=== PATIENT | male | born 1990 | race Caucasian/White ===

== ENCOUNTER 2017-06-14 22:04 | Emergency (ER) | payer OTHER ==
[2017-06-14 22:14] VITALS: BP 154/93; PULSE 105; RESP 18; TEMP 98.6
[2017-06-14] MEDS ORDERED: IBUPROFEN 600 MG TAB PO STA (22:31)
[2017-06-14] MEDS ORDERED: ACETAMINOPHEN TAB 325 MG TAB PO STA (22:31)
--- NOTE | 2017-06-14 22:47 | XR ---
EXAMINATION TYPE: XR elbow limited LT DATE OF EXAM: 06/14/2017 COMPARISON: NONE HISTORY: Fell down the stairs. Pain. TECHNIQUE: 4 views FINDINGS: There is a transverse fracture of the olecranon process of the ulna. There is displacement more than 1 cm. There is elbow joint effusion. There is soft tissue swelling over the olecranon proce ss. There is no dislocation. IMPRESSION: Acute transverse fracture of the olecranon process of the ulna. Elbow joint effusion.
--- NOTE | 2017-06-14 23:11 | ED ---
Fall HPI - General Chief Complaint: Fall Stated Complaint: fall/elbow pain Time Seen by Provider: 06/14/17 22:29 Source: patient, EMS Mode of arrival: ambulatory - History of Present Illness Initial Comments: 26-year-old male patient presents to emergency department states complaint of left elbow pain and swelling. Patient states just prior to arrival he was walking up one step when he tripped and fell forward landing right on the elbow. He states that it swelled immediately. He states his significant pain with any attempts to move the elbow. He denies hitting his head or losing consciousness. He denies any other injuries. Patient denies any headache, neck pain, back pain, chest pain, shortness of breath, dizziness, weakness, abdominal pain, nausea, vomiting, or difficulties with bowel movements or urination. - Related Data Previous Rx's Medication Instructions Recorded Acetaminophen-Codeine 300-30mg 1 tab PO Q6H PRN #15 tablet 06/14/17 [Tylenol #3] Allergies Allergy/AdvReac Type Severity Reaction Status Date / Time powder deodorant Allergy Unknown Uncoded 06/14/17 22:15 Review of Systems ROS Statement: Those systems with pertinent positive or pertinent negative responses have been documented in the HPI. ROS Other: All systems not noted in ROS Statement are negative. Past Medical History Past Medical History: No Reported History History of Any Multi-Drug Resistant Organisms: None Reported Past Surgical History: No Surgical Hx Reported Past Psychological History: No Psychological Hx Reported Smoking Status: Never smoker Past Alcohol Use History: None Reported Past Drug Use History: None Reported, Unable to Obtain General Exam Limitations: no limitations General appearance: alert, in no apparent distress, other (This is a well- developed, well-nourished adult male patient in no acute distress. Vital signs upon presentation are temperature 98.6F, pulse 105, respirations 18, blood pressure 154/93, pulse ox 98% on room air.) Head exam: Present: atraumatic, normocephalic, normal inspection Eye exam: Present: normal appearance, PERRL, EOMI. Absent: scleral icterus, conjunctival injection, periorbital swelling ENT exam: Present: normal exam, normal oropharynx, mucous membranes moist Neck exam: Present: normal inspection, full ROM, other (Nontender, no step-off, no deformity to firm midline palpation of the posterior cervical spine. Full range of motion without pain or limitation.). Absent: tenderness, meningismus, lymphadenopathy Respiratory exam: Present: normal lung sounds bilaterally. Absent: respiratory distress, wheezes, rales, rhonchi, stridor Cardiovascular Exam: Present: regular rate, normal rhythm, normal heart sounds. Absent: systolic murmur, diastolic murmur, rubs, gallop, clicks Extremities exam: Present: full ROM, tenderness (Over the left elbow), normal capillary refill, joint swelling ( left elbow swelling, over the extensor surface), other (Significant swelling noted over the extensor surface of the left elbow. Radial pulses 2+ and equal bilaterally. Skin is otherwise pink, warm, and dry. Cap refills less than 3 seconds.). Absent: normal inspection, pedal edema, calf tenderness Back exam: Present: normal inspection, other (Nontender, no step-off, no deformity to firm midline palpation of the thoracic and lumbar vertebrae. Full range of motion without pain or limitation.). Absent: vertebral tenderness Neurological exam: Present: alert, oriented X3, CN II-XII intact Psychiatric exam: Present: normal affect, normal mood Skin exam: Present: warm, dry, intact, normal color. Absent: rash Course Vital Signs 06/14/17 22:11 Temperature 98.6 F Pulse Rate 105 H Respiratory 18 Rate Blood Pressure 154/93 O2 Sat by Pulse 98 Oximetry Procedures - Orthopedic Splinting/Casting Injury #1 Side: left Upper Extremity Injury Location: long arm, elbow Upper Extremity Immobilizer: sling/shoulder immobilizer, ulnar gutter Additional Comments: Neurovascular status intact after splint application. Skin is pink, warm, and dry. Cap refills less than 3 seconds. Patient denies any numbness or tingling. Medical Decision Making - Medical Decision Making 26-year-old male patient presented to the emergency department today for evaluation of left elbow pain and swelling. Physical examination did reveal significant swelling to the extensor surface of the left elbow. Neurovascular status was intact. X-ray was obtained and did show a transverse fracture through the olecranon process of the ulna. This is a displaced fracture of greater than 1 cm. Patient was placed in an ulnar gutter long arm splint and placed in a sling. He was educated regarding placing. He'll be given Tylenol 3 for pain control. He is instructed to follow-up with orthopedics as soon as possible. He is instructed to return here immediately for any new, worsening, or concerning symptoms. He verbalizes understanding and agrees with this plan. - Radiology Data Radiology results: report reviewed, image reviewed 4 views of the left elbow show transverse fracture of the olecranon process of the ulna. There is displacement more than 1 cm. There is elbow joint effusion. There is soft tissue swelling over the olecranon process. There is no dislocation. Impression by Dr. Lopez shows acute transverse fracture of the olecranon process of the ulna. Elbow joint effusion. Disposition Clinical Impression: Olecranon fracture Disposition: HOME SELF-CARE Condition: Good Instructions: Elbow Fracture (ED) Additional Instructions: Leave splint in place. Apply ice to the area 30 minutes at a time at least 4 times daily. Do not get splint wet. Use sling for comfort. Follow up with orthopedics as soon as possible. Take your disc to the appointment with you. Take medications as directed. Return here immediately for any new, worsening, or concerning symptoms. Prescriptions: Acetaminophen-Codeine 300-30mg [Tylenol #3] 1 tab PO Q6H PRN #15 tablet PRN Reason: Pain Referrals: None,Stated [Primary Care Provider] - 1-2 days Lacho Boone DO [Doctor of Osteopathic Medicine] - 1-2 days Time of Disposition: 23:11
== END 2017-06-14 23:05 | disposition home or self-care (01) ==
LOC: EC 22:04
DX: S52.022A Displaced fracture of olecranon process without intraarticular extension of left ulna, initial encounter for closed fracture (principal); M25.422 Effusion, left elbow; Z91.048 Other nonmedicinal substance allergy status; W01.0XXA Fall on same level from slipping, tripping and stumbling without subsequent striking against object, initial encounter; Y93.01 Activity, walking, marching and hiking; Y92.89 Other specified places as the place of occurrence of the external cause
CPT/HCPCS: 29105; 99283

== ENCOUNTER 2017-06-17 16:40 | Emergency (ER) | payer OTHER ==
[2017-06-17 16:57] VITALS: RESP 18
--- NOTE | 2017-06-17 17:37 | ED ---
General Adult HPI - General Chief complaint: Recheck/Abnormal Lab/Rx Stated complaint: Wants blood pressure checked Time Seen by Provider: 06/17/17 17:06 Source: patient, RN notes reviewed, old records reviewed Mode of arrival: ambulatory Limitations: no limitations - History of Present Illness Initial comments: Patient 26-year-old male who presents emergency room today with a chief complaint of needing his blood pressure rechecked. He states that he was seen recently here in the emergency room diagnosed with a fracture of the left elbow. He states she's scheduled to have surgery in the neck 4 days. He states that he was advised that he should come to the hospital have his blood pressure checked prior to surgery. Patient states he has no past medical history is not on any medications. Denies any history of hypertension. Patient denies any recent fever, chills, shortness of breath, chest pain, headaches or visual changes, or any other complaints. - Related Data Home Medications Medication Instructions Recorded Confirmed No Known Home Medications [No 06/17/17 06/17/17 Known Home Medications] Allergies Allergy/AdvReac Type Severity Reaction Status Date / Time nickel Allergy irritates Verified 06/17/17 16:59 skin powder deodorant Allergy Rash/Hives Uncoded 06/17/17 16:57 Review of Systems ROS Statement: Those systems with pertinent positive or pertinent negative responses have been documented in the HPI. ROS Other: All systems not noted in ROS Statement are negative. 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 Eye: Pupils are equal, round and reactive to light, extra-ocular movements are intact. No nystagmus. There is normal conjunctiva bilaterally. No signs of icterus. Ears, nose, mouth and throat: There are moist mucous membranes and no oral lesions. Musculoskeletal: Patient currently in splint on the left side with an arm sling. Sensations are intact. Cap refill less than 2 seconds. Neurological: A&O x 3. CN II-XII intact, There are no obvious motor or sensory deficits. Coordination appears grossly intact. Speech is normal. Skin: Skin is warm and dry and no rashes or lesions are noted. Psychiatric: Cooperative, appropriate mood & affect, normal judgment. Limitations: no limitations Course Vital Signs 06/17/17 16:53 Temperature 98.1 F Pulse Rate 111 H Respiratory 18 Rate Blood Pressure 136/88 O2 Sat by Pulse 100 Oximetry Medical Decision Making - Medical Decision Making Patient blood pressure stable here in the emergency room. Repeat vitals obtained. Patient's vitals stable. Will be discharged to follow-up with his orthopedic doctor. Disposition Clinical Impression: Blood pressure check Disposition: HOME SELF-CARE Condition: Good Instructions: Elbow Fracture (ED) Additional Instructions: Please follow-up with orthopedic doctor with your scheduled surgery. Referrals: None,Stated [Primary Care Provider] - 1-2 days Lacho Boone DO [Doctor of Osteopathic Medicine] - 1-2 days Time of Disposition: 17:37
[2017-06-17 17:41] VITALS: BP 133/83; PULSE 102; TEMP 97.8
== END 2017-06-17 17:40 | disposition home or self-care (01) ==
LOC: EC 16:40
DX: Z01.30 Encounter for examination of blood pressure without abnormal findings (principal); Z91.048 Other nonmedicinal substance allergy status
CPT/HCPCS: 99282

== ENCOUNTER 2017-06-21 11:10 | Day surgery (SDC) | payer OTHER ==
[2017-06-16 15:31] VITALS: BMI 25.7
[~2017-06-21 11:10] MED LIST: DEXAMETHASONE SOD PHOSPHATE 10 MG/ML 1 ML VIAL IV ONE; LACTATED RINGERS 1,000 ML IV SCH; MIDAZOLAM 2 MG/2 ML VIAL IV PRN; MORPHINE SULFATE 4 MG/ML SYRINGE IV PRN; ONDANSETRON 4 MG/2 ML VIAL IVP ONE; SCOPOLAMINE 1.5MG/72HR PATCH TRANSDERM ONE; ceFAZolin IN SWFI 2 GM/20 ML SYRINGE IVP ONE
[2017-06-21] MEDS ORDERED: LIDOCAINE 1% 20 ML VIAL (10MG/ML) FOR IV START INTRADERMA ONE (12:20)
[2017-06-21] MEDS ORDERED: LIDOCAINE 1% INJ 10MG/ML (20 ML MDV) ONE (14:45)
[2017-06-21] MEDS ORDERED: SUCCINYLCHOLINE CHLORIDE 100 MG/5 ML SYR IV ONE (14:45)
[2017-06-21] MEDS ORDERED: fentaNYL (PF) 50 MCG/ML 2 ML AMP ONE (14:45)
[2017-06-21] MEDS ORDERED: KETOROLAC 30 MG/ML 1 ML VIAL ONE (14:45)
[2017-06-21] MEDS ORDERED: MIDAZOLAM 2 MG/2 ML VIAL ONE (14:45)
[2017-06-21] MEDS ORDERED: PROPOFOL 10 MG/ML 20 ML VIAL IV ONE (14:45)
[2017-06-21] MEDS ORDERED: HYDROmorphone (PF) 1 MG/ML ONE (14:45)
[2017-06-21] MEDS ORDERED: ceFAZolin 1,000 MG in SODIUM CHLORIDE 0.9% 1,000 ML IRRIGATION ONE (15:14)
[2017-06-21] MEDS ORDERED: BUPIVACAINE (PF) 0.25% 30 ML VIAL SQ ONE (15:28)
--- NOTE | 2017-06-21 15:33 | P.OP ---
Date of Procedure: 06/21/17 Preoperative Diagnosis: Displaced fracture left olecranon Postoperative Diagnosis: Displaced fracture left olecranon Procedure(s) Performed: Open reduction and internal fixation of the left olecranon Implants: 0.62 K wires and 18-gauge Lukey wire Anesthesia: KAMI Surgeon: Lacho Boone Ship Liner #1: Corina Saenz Estimated Blood Loss (ml): 20 Pathology: none sent Condition: stable Disposition: PACU Indications for Procedure: This is a 26 year old gentleman who slipped and fell and landed onto his left arm last week. He sustained a displaced fracture of his left olecranon. Her discussing the surgical nonsurgical treatment options with him and his mother at length, I recommended open reduction and internal fixation of his left olecranon. Informed consent was obtained. Operative Findings: The operative findings are consistent with a displaced fracture of the left olecranon. Description of Procedure: The patient was seen in the preoperative area, consent was reviewed, and operative site was marked with a skin marker. The patient was then brought to the operating room and given a gram of Ancef by the anesthesia department. A general anesthetic was administered a tourniquet was placed on left upper arm. The left upper extent reason prepped and draped in usual sterile fashion. Mcandrews timeout was then performed which confirmed the patient's name, surgical site, ALLERGIES, and consent. The left upper extremity was then exsanguinated, and the tourniquet inflated to 250 mmHg. A posterior lateral incision was then made over the left olecranon the skin and cutaneous tissue sharply incised. The fracture was readily encountered, the fracture hematoma was evacuated. Fracture was then reduced with a towel clip and 2.62 K wires were inserted across the fracture site. This was confirmed with fluoroscopy. Next, a tunnel was drilled through the ulna and an 18-gauge wire was passed. This wire was then passed over the K wires in a [id number] fashion. The wires were then tightened and excess wire and cable were cut. Final x-rays confirmed reduction of the fracture and placement of the hardware. The wound was then irrigated, and closed with 2-0 Vicryl, followed by reagan for the skin. 10 mL of quarter percent plain Marcaine were injected about the surgical site. A sterile dressing was placed, and the patient was placed in a long-arm splint. Patient was transferred recovery room in stable condition. The cashier assistant TEVIN Maurice was required due the complexity of the surgery the need for skilled respiratory assistant.
[2017-06-21] MEDS ORDERED: LACTATED RINGERS 1,000 ML IV ONE (15:45)
--- NOTE | 2017-06-21 15:49 | FL ---
Fluoroscopy HISTORY: Open reduction internal fixation left elbow 9 seconds fluoroscopy time supplied to the referring clinician. 2 intraoperative C-arm images docume nt the procedure. See dictated report from orthopedic surgery.
--- NOTE | 2017-06-21 15:50 | XR ---
Limited left elbow HISTORY: Fracture 2 intraoperative C-arm images document the procedure
[2017-06-21] MEDS ORDERED: diphenhydrAMINE 50 MG/ML 1 ML VIAL IVP ONE (16:16)
[2017-06-21] MEDS ORDERED: ONDANSETRON 4 MG/2 ML VIAL IVP PRN (16:28)
[2017-06-21] MEDS ORDERED: SENNOSIDES-DOCUSATE SODIUM 1 EACH TAB PO PRN (16:28)
[2017-06-21] MEDS ORDERED: HYDROcodone/APAP 7.5-325MG 1 EACH TAB PO PRN ×2 (16:29)
[2017-06-21] MEDS ORDERED: SODIUM CHLORIDE 0.9% 1,000 ML IV SCH (16:30)
[2017-06-21 17:29] VITALS: RESP 18; TEMP 98
[2017-06-21 18:18] VITALS: BP 151/73; PULSE 107
== END 2017-06-21 18:40 | disposition home or self-care (01) ==
LOC: OR 11:10 → 3OBS 15:52 → OR 18:40
PROVIDERS: ATTEND Orthopaedic Surgery
DX: S52.022A Displaced fracture of olecranon process without intraarticular extension of left ulna, initial encounter for closed fracture (principal); W10.9XXA Fall (on) (from) unspecified stairs and steps, initial encounter; Z72.0 Tobacco use; Z91.048 Other nonmedicinal substance allergy status
CPT/HCPCS: 73070; 24685; C1713; J2250; J2270; J1200; J1100; J2405; J0690 ×2; J2001; J3010; J1885; J1170; J0330; J2704

== ENCOUNTER 2017-12-14 21:41 | Emergency (ER) | payer OTHER ==
[2017-12-14 22:06] VITALS: RESP 20; TEMP 98.7
--- NOTE | 2017-12-14 22:23 | XR ---
EXAMINATION TYPE: XR chest 2V DATE OF EXAM: 12/14/2017 COMPARISON: NONE HISTORY: Chest pain TECHNIQUE: Frontal and lateral views of the chest are obtained. FINDINGS: Heart and mediastinum are normal. Lungs are clear. Diaphragm is normal. Bony thorax appear s intact. There is no sign of a pneumothorax. IMPRESSION: Normal chest
[2017-12-14 22:57] VITALS: BP 144/90; PULSE 89
--- NOTE | 2017-12-14 23:02 | ED ---
Fall HPI - General Chief Complaint: Fall Stated Complaint: Rib Pain Time Seen by Provider: 12/14/17 22:07 Source: patient Mode of arrival: ambulatory - History of Present Illness Initial Comments: This a 27-year-old male with past mental history of hypertension who presents today for chief complaint of right-sided rib pain status post fall times a week ago. 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 He states that he was carrying a box of "back in the freezer when he slipped on the wet floor falling onto his right side and onto a box of eggs. Patient denies hitting his head, injury to any extremity or loss conscious. Patient states that this was a mechanical fall. He denies a chest pain, shortness breath, dizziness, or palpitations prior to falling. Patient really noticed discomfort in his right sinus chest. Think much of it he thought it was a bruise. Patient denies any shortness of breath. Patient began to notice pain at the area of contact with coughing or sneezing. He was concerned about a broken rib stable or [place] today when symptoms persisted. Remainder ROS negative. Today patient denies any chest pain, shortness of breath, shortness breath upon exertion, pain with deep inspiration. VS stable, pt BP elevated he states has high blood pressure around doctors. - Related Data Previous Rx's Medication Instructions Recorded HYDROcodone/APAP 7.5-325MG [[place] 1 - 2 tab PO Q4-6H PRN #45 tab 06/21/17 7.5-325] Allergies Allergy/AdvReac Type Severity Reaction Status Date / Time nickel Allergy irritates Verified 12/14/17 22:06 skin powder deodorant Allergy Rash/Hives Uncoded 12/14/17 22:06 Review of Systems ROS Statement: Those systems with pertinent positive or pertinent negative responses have been documented in the HPI. ROS Other: All systems not noted in ROS Statement are negative. Constitutional: Denies: fever, chills ENT: Denies: ear pain, throat pain Respiratory: Denies: cough, dyspnea, wheezes, hemoptysis, stridor Cardiovascular: Reports: as per HPI. Denies: chest pain, palpitations, syncope Gastrointestinal: Denies: abdominal pain, nausea, vomiting, diarrhea, constipation Genitourinary: Denies: urgency, dysuria, frequency, hematuria Musculoskeletal: Reports: myalgia. Denies: back pain, joint swelling, arthralgia Skin: Reports: as per HPI (ecchymosis over right lower ribs). Denies: rash, lesions Past Medical History Past Medical History: Hypertension Additional Past Medical History / Comment(s): tripped and fell-fx left arm- dominate arm,states "b/p high sometimes" History of Any Multi-Drug Resistant Organisms: None Reported Past Surgical History: Orthopedic Surgery Additional Past Surgical History / Comment(s): rt great toe reattached after partial amputation Past Anesthesia/Blood Transfusion Reactions: No Reported Reaction Additional Past Anesthesia/Blood Transfusion Reaction / Comment(s): no hx blood transfusion Past Psychological History: No Psychological Hx Reported Smoking Status: Never smoker Past Alcohol Use History: None Reported Past Drug Use History: None Reported - Past Family History Mother Family Medical History: No Reported History General Exam - General Exam Comments Initial Comments: General: The patient is awake and alert, in no distress, and does not appear acutely ill. Eye: Pupils are equal, round and reactive to light, extra-ocular movements are intact. No nystagmus. There is normal conjunctiva bilaterally. No signs of icterus. Ears, nose, mouth and throat: There are moist mucous membranes and no oral lesions. Cardiovascular: There is a regular rate and rhythm. No murmur, rub or gallop is appreciated. Respiratory: Lungs are clear to auscultation, respirations are non-labored, breath sounds are equal and present in all lung miramontes. No wheezes, stridor, rales, or rhonchi. Musculoskeletal: Normal ROM, no tenderness. Strength 5/5. Sensation intact. Pulses equal bilaterally 2+. Neurological: A&O x 3. CN II-XII intact, There are no obvious motor or sensory deficits. Coordination appears grossly intact. Speech is normal. Skin: Skin is warm and dry and no rashes or lesions are noted. Area of ecchymosis over the right lateral rib cage about 4cm circular. Tender to palpation. No creptius, or palpable defect upon palpation. Psychiatric: Cooperative, appropriate mood & affect, normal judgment. Limitations: no limitations Course Vital Signs 12/14/17 12/14/17 22:03 22:56 Temperature 98.7 F Pulse Rate 97 89 Respiratory 20 20 Rate Blood Pressure 164/89 144/90 O2 Sat by Pulse 99 97 Oximetry Medical Decision Making - Medical Decision Making 27 yo with cc of right sided rib pain s/p fall one week ago. XR chest and right sided rib. Pt denies SOB/CP. XR CXR and right rib. CXR showed no pneumothorax, or rib fracture. Isolated right rib XR WNL, no acute fracture. At this time I feel pt is stable for d/c with PCP f/u for BP evaluation. Pt was instructed to use over the counter ibuprofen and tylenol for pain mgmt as neeeded. Pt agreed with plan and was d/c in stable condition after discussing the case in detail with Dr. Arizmendi. Disposition Clinical Impression: Rib pain, Contusion of rib on right side Disposition: HOME SELF-CARE Condition: Good Instructions: Rib Contusion (ED) Additional Instructions: Please use over the counter medication as discussed. Please follow-up with family doctor in the next 2 days for blood pressure evaluation. Please return to emergency room if the symptoms increase or worsen or for any other concerns. Is patient prescribed a controlled substance at d/c from ED?: No Referrals: None,Stated [Primary Care Provider] - 1-2 days Brian Juarez MD [REFERRING] - 1-2 days Time of Disposition: 23:03
--- NOTE | 2017-12-14 23:16 | XR ---
EXAMINATION TYPE: XR ribs RT DATE OF EXAM: 12/14/2017 COMPARISON: NONE HISTORY: Rib pain TECHNIQUE: 4 views FINDINGS: I see no pleural effusion or pneumothorax. Right lung is clear of infiltrate. There is no s ign of a rib fracture. IMPRESSION: Negative right rib exam.
== END 2017-12-14 23:20 | disposition home or self-care (01) ==
LOC: EC 21:41
DX: S20.211A Contusion of right front wall of thorax, initial encounter (principal); I10 Essential (primary) hypertension; Z91.048 Other nonmedicinal substance allergy status; W01.0XXA Fall on same level from slipping, tripping and stumbling without subsequent striking against object, initial encounter; Y93.89 Activity, other specified; Y92.511 Restaurant or cafe as the place of occurrence of the external cause
CPT/HCPCS: 71046; 99283

== ENCOUNTER 2018-09-15 00:29 | Emergency (ER) | payer OTHER ==
[2018-09-15 01:10] VITALS: TEMP 98.7
[2018-09-15 02:29] LABS: Basophils # (A) 0.2 k/uL (0-0.2); Basophils % (A) 1 %; Eosinophils # (A) 0.2 k/uL (0-0.7); Eosinophils % (A) 1 %; HCT 40.3 % (39.0-53.0); HGB 13.7 gm/dL (13.0-17.5); Lymphocytes # (A) 6.6 k/uL (1.0-4.8); Lymphocytes % (A) 43 %; MCH 29.7 pg (25.0-35.0); MCV 87.4 fL (80.0-100.0); Mean Platelet Volume 6.5; Monocytes # (A) 0.7 k/uL (0-1.0); Monocytes % (A) 4 %; Neutrophils # (A) 7.2 k/uL (1.3-7.7); Neutrophils % (A) 47 %; Platelet Count 276 k/uL (150-450); RBC 4.61 m/uL (4.30-5.90); RDW 14.5 % (11.5-15.5); WBC 15.1 k/uL (3.8-10.6)
--- NOTE | 2018-09-15 02:35 | ED ---
GI Bleed HPI - General Chief complaint: GI Bleed Stated complaint: Rectal Bleeding Time Seen by Provider: 09/15/18 01:55 Source: patient Mode of arrival: ambulatory Limitations: no limitations - History of Present Illness Initial comments: This is a 27-year-old man who comes to be evaluated for rectal bleeding. The patient states "I took a shower tonight and when I cleaned my but I think a pop to hemorrhoid." He states that he noticed that he was having bright red blood. She denies any difficulty with passing stool. Patient denies any symptoms of anemia, including no chest pain, dyspnea, lightheadedness or syncope. No palpitations. MD complaint: other -: hour(s) Radiation: none Quality: painless Consistency: intermittent Improves with: none Associated Symptoms: denies other symptoms - Related Data Home Medications Medication Instructions Recorded Confirmed No Known Home Medications 09/15/18 09/15/18 Allergies Allergy/AdvReac Type Severity Reaction Status Date / Time nickel Allergy irritates Verified 12/14/17 22:06 skin powder deodorant Allergy Rash/Hives Uncoded 12/14/17 22:06 Review of Systems ROS Statement: Those systems with pertinent positive or pertinent negative responses have been documented in the HPI. ROS Other: All systems not noted in ROS Statement are negative. Constitutional: Denies: fever, chills Respiratory: Denies: cough, dyspnea Cardiovascular: Denies: chest pain Gastrointestinal: Denies: abdominal pain, nausea, vomiting, diarrhea, constipation, melena, hematochezia Genitourinary: Denies: dysuria Skin: Denies: rash Neurological: Denies: headache Past Medical History Past Medical History: Hypertension Additional Past Medical History / Comment(s): tripped and fell-fx left arm- dominate arm,states "b/p high sometimes" History of Any Multi-Drug Resistant Organisms: None Reported Past Surgical History: Orthopedic Surgery Additional Past Surgical History / Comment(s): rt great toe reattached after partial amputation Past Anesthesia/Blood Transfusion Reactions: No Reported Reaction Additional Past Anesthesia/Blood Transfusion Reaction / Comment(s): no hx blood transfusion Past Psychological History: No Psychological Hx Reported Smoking Status: Never smoker Past Alcohol Use History: None Reported Past Drug Use History: None Reported - Past Family History Mother Family Medical History: No Reported History General Exam Limitations: no limitations General appearance: alert, in no apparent distress Head exam: Present: atraumatic, normocephalic Respiratory exam: Present: normal lung sounds bilaterally. Absent: respiratory distress, wheezes, rales, rhonchi, stridor Cardiovascular Exam: Present: regular rate, normal rhythm, normal heart sounds. Absent: systolic murmur, diastolic murmur, rubs, gallop GI/Abdominal exam: Present: soft. Absent: distended, tenderness, guarding, rebound, rigid, mass Rectal exam: Present: other (Condyloma present. There is an excoriation with recent bleeding. No active bleeding.) Extremities exam: Present: normal inspection, normal capillary refill. Absent: pedal edema, calf tenderness Back exam: Present: normal inspection. Absent: CVA tenderness (R), CVA tenderness (L) Neurological exam: Present: alert Skin exam: Present: warm, dry, intact, normal color. Absent: rash Course Vital Signs 09/15/18 09/15/18 01:05 02:59 Temperature 98.7 F Pulse Rate 118 H 100 Respiratory 20 16 Rate Blood Pressure 158/85 141/94 O2 Sat by Pulse 99 100 Oximetry Medical Decision Making - Lab Data Result diagrams: 09/15/18 02:05 09/15/18 02:05 Lab Results 09/15/18 09/15/18 09/15/18 Range/Units 02:05 02:05 02:05 WBC 15.1 H (3.8-10.6) k/uL RBC 4.61 (4.30-5.90) m/uL Hgb 13.7 (13.0-17.5) gm/dL Hct 40.3 (39.0-53.0) % MCV 87.4 (80.0-100.0) fL MCH 29.7 (25.0-35.0) pg MCHC 34.0 (31.0-37.0) g/dL RDW 14.5 (11.5-15.5) % Plt Count 276 (150-450) k/uL Neutrophils % 47 % Lymphocytes % 43 % Monocytes % 4 % Eosinophils % 1 % Basophils % 1 % Neutrophils # 7.2 (1.3-7.7) k/uL Lymphocytes # 6.6 H (1.0-4.8) k/uL Monocytes # 0.7 (0-1.0) k/uL Eosinophils # 0.2 (0-0.7) k/uL Basophils # 0.2 (0-0.2) k/uL Manual Slide Review Performed PT 10.6 (9.0-12.0) sec INR 1.0 (<1.2) APTT 29.3 (22.0-30.0) sec Sodium 139 (137-145) mmol/L Potassium 3.9 (3.5-5.1) mmol/L Chloride 104 (98-107) mmol/L Carbon Dioxide 28 (22-30) mmol/L Anion Gap 7 mmol/L BUN 13 (9-20) mg/dL Creatinine 0.69 (0.66-1.25) mg/dL Est GFR (CKD-EPI)AfAm >90 (>60 ml/min/1.73 sqM) Est GFR (CKD-EPI)NonAf >90 (>60 ml/min/1.73 sqM) Glucose 109 H (74-99) mg/dL Calcium 9.6 (8.4-10.2) mg/dL Disposition Clinical Impression: Condyloma acuminatum Disposition: HOME SELF-CARE Condition: Fair Instructions (If sedation given, give patient instructions): Genital Warts (ED) Is patient prescribed a controlled substance at d/c from ED?: No Referrals: None,Stated [Primary Care Provider] - 1-2 days Tavo Skinner MD [STAFF PHYSICIAN] - 1-2 days
[2018-09-15 02:36] LABS: Anion Gap 7 mmol/L; Blood Urea Nitrogen 13 mg/dL (9-20); Calcium 9.6 mg/dL (8.4-10.2); Carbon Dioxide 28 mmol/L (22-30); Chloride 104 mmol/L (98-107); Glucose 109 mg/dL (74-99); Potassium 3.9 mmol/L (3.5-5.1); Sodium 139 mmol/L (137-145)
[2018-09-15 02:43] LABS: Partial Thromboplastin Time 29.3 sec (22.0-30.0); Prothrombin Time 10.6 sec (9.0-12.0)
[2018-09-15 03:01] VITALS: BP 141/94; PULSE 100; RESP 16
== END 2018-09-15 03:38 | disposition home or self-care (01) ==
LOC: EC 00:29
DX: A63.0 Anogenital (venereal) warts (principal); Z91.048 Other nonmedicinal substance allergy status
CPT/HCPCS: 36415; 80048; 85025; 85610; 85730; 99283

== ENCOUNTER 2018-10-03 06:04 | Day surgery (SDC) | payer OTHER ==
[2018-09-28 08:28] VITALS: BMI 29.0
[~2018-10-03 06:04] MED LIST changes: +HEPARIN SODIUM,PORCINE 5,000 UNIT/ML 1 ML VIAL SQ ONE; +HYDROmorphone 0.5 MG/0.5 ML SYRINGE IVP PRN; +LIDOCAINE 1% 20 ML VIAL (10MG/ML) FOR IV START INTRADERMA PRN; -MORPHINE SULFATE 4 MG/ML SYRINGE IV PRN; +Pre Op ABX Message 1 EACH MISC MISCELLANE ONE; -ceFAZolin IN SWFI 2 GM/20 ML SYRINGE IVP ONE
[2018-10-03 06:45] VITALS: RESP 16; TEMP 97.6
[2018-10-03] MEDS ORDERED: BUPIVACAIN-EPI 0.5%-1:200,000 30 ML VIAL SQ ONE ×3 (07:42→08:31)
[2018-10-03] MEDS ORDERED: MIDAZOLAM 2 MG/2 ML VIAL ONE (07:50)
[2018-10-03] MEDS ORDERED: fentaNYL (PF) 50 MCG/ML 2 ML AMP ONE (07:50)
[2018-10-03] MEDS ORDERED: KETAMINE 10 MG/ML 20 ML VIAL ONE (07:50)
[2018-10-03] MEDS ORDERED: PROPOFOL 10 MG/ML 20 ML VIAL IV ONE (07:50)
[2018-10-03] MEDS ORDERED: GLYCOPYRROLATE 0.2 MG/ML 2 ML VIAL ONE (07:50)
[2018-10-03] MEDS ORDERED: ceFAZolin IN SWFI 2 GM/20 ML SYRINGE IVP ONE (08:00)
--- NOTE | 2018-10-03 08:11 | P.GSHP ---
History of Present Illness H&P Date: 10/03/18 Chief Complaint: Anal condyloma This a 27-year-old male who has developed anal condyloma after anal intercourse. Patient presents today for excision. Patient states he has pain and bleeding from his anal, all. Past Medical History Past Medical History: Hypertension Additional Past Medical History / Comment(s): states "b/p high sometimes" History of Any Multi-Drug Resistant Organisms: None Reported Past Surgical History: Orthopedic Surgery Additional Past Surgical History / Comment(s): rt great toe reattached after partial amputation, RIGHT ELBOW SURGERY, Past Anesthesia/Blood Transfusion Reactions: No Reported Reaction Additional Past Anesthesia/Blood Transfusion Reaction / Comment(s): no hx blood transfusion Smoking Status: Never smoker - Past Family History Mother Family Medical History: No Reported History Medications and Allergies Home Medications Medication Instructions Recorded Confirmed Type No Known Home Medications 09/15/18 10/03/18 History Allergies Allergy/AdvReac Type Severity Reaction Status Date / Time nickel Allergy irritates Verified 10/03/18 06:41 skin powder deodorant Allergy Rash/Hives Uncoded 10/03/18 06:41 Surgical - Exam Vital Signs Temp Pulse Resp BP Pulse Ox 97.6 F 104 H 16 126/82 97 10/03/18 06:44 10/03/18 06:44 10/03/18 06:44 10/03/18 06:44 10/03/18 06:44 - General well developed, well nourished, no distress - Eyes PERRL - ENT normal pinna - Neck no masses - Respiratory normal expansion - Cardiovascular Rhythm: regular - Abdomen Abdomen: soft, non tender - Rectum Multiple anal condyloma of anus. Assessment and Plan Assessment: Anal condyloma. We'll perform excision.
[2018-10-03] MEDS ORDERED: LACTATED RINGERS 1,000 ML IV ONE (08:48)
--- NOTE | 2018-10-03 09:15 | P.OP ---
Date of Procedure: 10/03/18 Preoperative Diagnosis: Anal condyloma Postoperative Diagnosis: Anal condyloma Procedure(s) Performed: Excision of anal condyloma Anesthesia: MAC Surgeon: Tavo Skinner Pathology: other (Anal condyloma) Condition: stable Disposition: PACU Description of Procedure: The patient's placed on the operative table in the prone jackknife position. He received IV sedation. His anus was anesthetized 1% local Xylocaine. Using a left cautery the anal condyloma were excised. Several small anal condyloma fulg urated. The anal retractor was used to examine the anus and several small anal condyloma were fulgurated from within the anus. Patient top she will was sent to recovery in stable condition.
[2018-10-03] MEDS ORDERED: HYDROcodone/APAP 5-325MG 1 EACH TAB PO ONE (09:26)
[2018-10-03 10:08] VITALS: BP 124/83; PULSE 105
== END 2018-10-03 11:10 | disposition home or self-care (01) ==
LOC: OR 06:04
PROVIDERS: ATTEND Surgery
DX: A63.0 Anogenital (venereal) warts (principal); Z91.048 Other nonmedicinal substance allergy status
CPT/HCPCS: 88305; 46910; J2250; J1644; J1100; J2405; J3010; J2704; J0690

== ENCOUNTER 2020-09-14 18:40 | Emergency (ER) | payer OTHER ==
[2020-09-14 18:45] VITALS: TEMP 98.7
[2020-09-14] MEDS ORDERED: GLUCAGON 1 MG/ML VIAL IVP STA ×2 (18:57→20:15)
--- NOTE | 2020-09-14 19:00 | ED ---
ENT HPI - General Chief complaint: ENT Stated complaint: Food Obstruction Time Seen by Provider: 09/14/20 18:48 Source: patient Mode of arrival: ambulatory Limitations: no limitations - History of Present Illness Initial comments: This patient is a 29-year-old man who presents with complaint of food impaction in the esophagus. The patient states that he was eating ribs about 15 or 20 minutes before he got here when it felt like a piece of meat lodged in his throat. He states that since that time he has not been able to swallow. He is regurgitating his own saliva. Patient is not having any coughing or dyspnea. No trouble with speech. Denies previous history of esophageal problems MD complaint: difficulty swallowing Onset/Timin -: minutes(s) Location: throat Severity: moderate Quality: aching Consistency: constant Improves with: none Worsens with: swallowing - Related Data Previous Rx's Medication Instructions Recorded Docusate [Colace] 100 mg PO BID #20 capsule 10/03/18 HYDROcodone/APAP 5-325MG [[place] 1 tab PO Q6HR PRN #10 tab 10/03/18 5-325] Allergies Allergy/AdvReac Type Severity Reaction Status Date / Time nickel Allergy irritates Verified 09/14/20 18:44 skin powder deodorant Allergy Rash/Hives Uncoded 09/14/20 18:44 Review of Systems ROS Statement: Those systems with pertinent positive or pertinent negative responses have been documented in the HPI. ROS Other: All systems not noted in ROS Statement are negative. Constitutional: Denies: fever, chills ENT: Reports: as per HPI, throat pain. Denies: congestion Respiratory: Denies: cough, dyspnea, wheezes, stridor Cardiovascular: Denies: chest pain Gastrointestinal: Denies: abdominal pain, vomiting, diarrhea Musculoskeletal: Denies: back pain Skin: Denies: rash Neurological: Denies: headache, weakness Past Medical History Past Medical History: Hypertension Additional Past Medical History / Comment(s): states "b/p high sometimes" History of Any Multi-Drug Resistant Organisms: None Reported Past Surgical History: Orthopedic Surgery Additional Past Surgical History / Comment(s): rt great toe reattached after partial amputation, RIGHT ELBOW SURGERY, Past Anesthesia/Blood Transfusion Reactions: No Reported Reaction Additional Past Anesthesia/Blood Transfusion Reaction / Comment(s): no hx blood transfusion Past Psychological History: No Psychological Hx Reported Smoking Status: Never smoker Past Alcohol Use History: None Reported Past Drug Use History: None Reported - Past Family History Mother Family Medical History: No Reported History General Exam Limitations: no limitations General appearance: alert, in no apparent distress Head exam: Present: atraumatic, normocephalic Eye exam: Present: normal appearance. Absent: scleral icterus, conjunctival injection ENT exam: Present: normal oropharynx Neck exam: Present: normal inspection, full ROM. Absent: lymphadenopathy Respiratory exam: Present: normal lung sounds bilaterally. Absent: respiratory distress, wheezes, rales, rhonchi, stridor Cardiovascular Exam: Present: normal rhythm, tachycardia, normal heart sounds. Absent: systolic murmur, diastolic murmur, rubs, gallop GI/Abdominal exam: Present: soft. Absent: distended, tenderness, guarding, rebound, rigid, normal bowel sounds, mass, pulsatile mass Extremities exam: Present: normal inspection, normal capillary refill. Absent: pedal edema, calf tenderness Back exam: Present: normal inspection. Absent: CVA tenderness (R), CVA tenderness (L) Neurological exam: Present: alert Skin exam: Present: warm, dry, intact, normal color. Absent: rash Course Vital Signs 09/14/20 09/14/20 18:41 19:22 Temperature 98.7 F Pulse Rate 120 H 115 H Respiratory 18 22 Rate Blood Pressure 163/91 135/94 O2 Sat by Pulse 99 98 Oximetry Medical Decision Making - Lab Data Result diagrams: 09/14/20 19:13 09/14/20 19:13 Lab Results 09/14/20 09/14/20 09/14/20 Range/Units 19:13 19:13 19:13 WBC 9.0 (3.8-10.6) k/uL RBC 5.09 (4.30-5.90) m/uL Hgb 15.9 (13.0-17.5) gm/dL Hct 45.3 (39.0-53.0) % MCV 89.0 (80.0-100.0) fL MCH 31.1 (25.0-35.0) pg MCHC 35.0 (31.0-37.0) g/dL RDW 12.8 (11.5-15.5) % Plt Count 301 (150-450) k/uL MPV 6.9 Neutrophils % 55 % Lymphocytes % 32 % Monocytes % 7 % Eosinophils % 3 % Basophils % 1 % Neutrophils # 5.0 (1.3-7.7) k/uL Lymphocytes # 2.9 (1.0-4.8) k/uL Monocytes # 0.6 (0-1.0) k/uL Eosinophils # 0.3 (0-0.7) k/uL Basophils # 0.1 (0-0.2) k/uL PT 10.0 (9.0-12.0) sec INR 0.9 (<1.2) APTT 25.2 (22.0-30.0) sec Sodium 141 (137-145) mmol/L Potassium 3.8 (3.5-5.1) mmol/L Chloride 102 (98-107) mmol/L Carbon Dioxide 28 (22-30) mmol/L Anion Gap 11 mmol/L BUN 12 (9-20) mg/dL Creatinine 0.82 (0.66-1.25) mg/dL Est GFR (CKD-EPI)AfAm >90 (>60 ml/min/1.73 sqM) Est GFR (CKD-EPI)NonAf >90 (>60 ml/min/1.73 sqM) Glucose 105 H (74-99) mg/dL Calcium 9.8 (8.4-10.2) mg/dL Disposition Clinical Impression: Food impaction of esophagus Disposition: HOME SELF-CARE Condition: Good Instructions (If sedation given, give patient instructions): Esophageal Foreign Body (ED) Is patient prescribed a controlled substance at d/c from ED?: No Referrals: None,Stated [Primary Care Provider] - 1-2 days Della Hayward MD [STAFF PHYSICIAN] - 1-2 days
[2020-09-14 19:22] VITALS: RESP 22
[2020-09-14 19:34] LABS: Basophils # (A) 0.1 k/uL (0-0.2); Basophils % (A) 1 %; Eosinophils # (A) 0.3 k/uL (0-0.7); Eosinophils % (A) 3 %; HCT 45.3 % (39.0-53.0); HGB 15.9 gm/dL (13.0-17.5); Lymphocytes # (A) 2.9 k/uL (1.0-4.8); Lymphocytes % (A) 32 %; MCH 31.1 pg (25.0-35.0); Mean Platelet Volume 6.9; Monocytes # (A) 0.6 k/uL (0-1.0); Monocytes % (A) 7 %; Neutrophils % (A) 55 %; Platelet Count 301 k/uL (150-450); RBC 5.09 m/uL (4.30-5.90); RDW 12.8 % (11.5-15.5)
[2020-09-14 19:42] LABS: INR 0.9 (<1.2); Partial Thromboplastin Time 25.2 sec (22.0-30.0)
[2020-09-14 20:01] LABS: African American GFR (CKD) >90 (>60 ml/min/1.73 sqM); Anion Gap 11 mmol/L; Blood Urea Nitrogen 12 mg/dL (9-20); Calcium 9.8 mg/dL (8.4-10.2); Carbon Dioxide 28 mmol/L (22-30); Chloride 102 mmol/L (98-107); Glucose 105 mg/dL (74-99); Non-African American GFR(CKD) >90 (>60 ml/min/1.73 sqM); Potassium 3.8 mmol/L (3.5-5.1); Sodium 141 mmol/L (137-145)
[2020-09-14] MEDS ORDERED: SODIUM CHLORIDE 0.9% 500 ML 500 ML IV STA (20:15)
[2020-09-14 21:37] VITALS: BP 118/67; PULSE 105
== END 2020-09-14 21:37 | disposition home or self-care (01) ==
LOC: EC 18:40
DX: T18.128A Food in esophagus causing other injury, initial encounter (principal); I10 Essential (primary) hypertension
CPT/HCPCS: 36415; 80048; 85025; 85610; 85730; 99284; 96374; J1610